=== PATIENT | female | born 1985 | race Two or more races ===

== ENCOUNTER 2023-10-12 10:28 | Emergency (ER) | payer SELFPAY ==
[~2023-10-12] VITALS: Ht 165.1 cm; Wt 104.2 kg
[2023-10-12] MEDS: cefTRIAXone SOD 1,000 MG VL IM ONE (12:07)
[2023-10-12] MEDS: LIDOCAINE 1% HCL (LOCAL ANESTH.) INJ 20ML MDV IJ ONE (12:07)
[2023-10-12] MEDS: methylPREDNISolone SOD SUCC 125 MG/2 ML VL IM ONE (12:07)
[2023-10-12 12:20] VITALS: BP 116/66; PULSE 100; RESP 18; TEMP 99.9; O2SAT 99
[2023-10-12] MEDS ORDERED: PENI500T2 PO (12:30)
[2023-10-12] MEDS ORDERED: LIDO2SOL26 MT (12:30)
== END 2023-10-12 12:37 | disposition home or self-care (01) ==
LOC: ER 10:28
DX: J03.90 Acute tonsillitis, unspecified (principal)
CPT/HCPCS: 96372; 99284; J0696; J2001; J2919